=== PATIENT | male | born 1965 | race Hispanic/Latino ===

== ENCOUNTER 2018-12-31 17:41 | Emergency (ER) | payer OTHER ==
[2018-12-31] MEDS ORDERED: TETANUS/DIPHTHERIA TOXOID [ADULT] 0.5 ML VIAL IM ONE (17:57)
[2018-12-31] MEDS ORDERED: ACETAMINOPHEN EXTRA STRENGTH 500 MG TABLET ONE (18:26)
== END 2018-12-31 18:52 | disposition home or self-care (01) ==
LOC: EDH 17:41
DX: S01.01XA Laceration without foreign body of scalp, initial encounter (principal); W22.8XXA Striking against or struck by other objects, initial encounter; Y93.89 Activity, other specified; Y92.89 Other specified places as the place of occurrence of the external cause; Y99.8 Other external cause status
CPT/HCPCS: 12031; 90471; 90714

== ENCOUNTER 2019-01-14 17:34 | Emergency (ER) | payer OTHER | END 2019-01-14 18:11 | disposition home or self-care (01) | LOC: EDH 17:34 | DX: S01.81XD Laceration without foreign body of other part of head, subsequent encounter (principal); X58.XXXD Exposure to other specified factors, subsequent encounter | CPT/HCPCS: 99281 ==

== ENCOUNTER 2019-03-13 08:50 | Emergency (ER) | payer SELFPAY ==
[2019-03-13] MEDS ORDERED: METHYLPREDNISOLONE SOD SUCC 125MG/2ML VIAL ONE (09:14)
[2019-03-13] MEDS ORDERED: IPRATROPIUM/ALBUTEROL SULFATE 3 ML SOLUTION IH ONE (09:15)
[2019-03-13 09:17] LABS: BASOPHILS % (AUTO) 0.8 % (0.0-5.0); EOSINOPHILS % (AUTO) 20.3 % (0.0-8.0); HEMATOCRIT 42.1 % (42-54); LYMPHOCYTES % (AUTO) 17.7 % (21.0-51.0); MEAN CORPUSCULAR HEMOGLOBIN 27.9 pg (27.0-33.0); MEAN CORPUSCULAR HGB CONC 32.9 g/dL (32.0-36.0); MEAN CORPUSCULAR VOLUME 84.8 fL (79-99); MONOCYTES % (AUTO) 6.4 % (3.0-13.0); NEUTROPHILS % (AUTO) 54.8 % (40.0-77.0); NUCLEATED RED BLOOD CELLS 0.1 % (0.0-0.19); PLATELET COUNT (AUTO) 336 K/uL (130-400); RED BLOOD CELL COUNT(AUTO) 4.96 MIL/uL (4.50-6.20); WHITE BLOOD COUNT (AUTO) 12.6 K/uL (4.8-10.8)
[2019-03-13 09:27] LABS: CREATININE 0.8 mg/dL (0.5-1.5); POTASSIUM 3.9 mmol/L (3.5-5.1)
[2019-03-13 09:31] LABS: ALBUMIN 3.5 g/dL (3.5-5.0); BILIRUBIN,TOTAL 0.2 mg/dL (0.2-1.0); TOTAL PROTEIN, SERUM 8.4 g/dL (6.0-8.3)
[2019-03-13] MEDS ORDERED: CEFTRIAXONE SODIUM 1 GM ONE (09:32)
[2019-03-13] MEDS ORDERED: AZITHROMYCIN 250 MG TABLET PO ONE (09:33)
[2019-03-13] MEDS ORDERED: OSELTAMIVIR PHOSPHATE 75 MG CAP ONE (10:09)
== END 2019-03-13 10:41 | disposition home or self-care (01) ==
LOC: EDH 08:50
DX: J09.X2 Influenza due to identified novel influenza A virus with other respiratory manifestations (principal); J18.9 Pneumonia, unspecified organism; J45.41 Moderate persistent asthma with (acute) exacerbation; Z87.891 Personal history of nicotine dependence
CPT/HCPCS: 36415; 71045; 80053; 82550; 83605; 84484; 85025; 87040 ×2; 87804 ×2; 93005; 94640; 96374; 96375; 99285; J0696; J2930

== ENCOUNTER 2019-06-01 06:30 | Inpatient (IN) | payer SELFPAY ==
[~2019-06-01] VITALS: Ht 170.2 cm; Wt 69.8 kg
[2019-06-01] MEDS ORDERED: IPRATROPIUM/ALBUTEROL SULFATE 3 ML SOLUTION IH ONE ×2 (06:49→11:07)
[2019-06-01] MEDS ORDERED: PREDNISONE 20 MG TABLET ONE (07:07)
[2019-06-01 07:18] LABS: BASOPHILS % (AUTO) 0.8 % (0.0-5.0); EOSINOPHILS % (AUTO) 31.2 % (0.0-8.0); HEMATOCRIT 40.8 % (42-54); LYMPHOCYTES % (AUTO) 18.8 % (21.0-51.0); MEAN CORPUSCULAR HEMOGLOBIN 29.5 pg (27.0-33.0); MEAN CORPUSCULAR HGB CONC 33.8 g/dL (32.0-36.0); MEAN CORPUSCULAR VOLUME 87.3 fL (79-99); MONOCYTES % (AUTO) 5.2 % (3.0-13.0); PLATELET COUNT (AUTO) 400 K/uL (130-400); RED BLOOD CELL COUNT(AUTO) 4.67 MIL/uL (4.50-6.20); RED CELL DISTRIBUTION WIDTH 14.1 % (11.0-15.5); WHITE BLOOD COUNT (AUTO) 12.3 K/uL (4.8-10.8)
[2019-06-01 07:28] LABS: CREATININE 0.8 mg/dL (0.5-1.5); POTASSIUM 3.7 mmol/L (3.5-5.1)
[2019-06-01 07:32] LABS: PARTIAL THROMBOPLASTIN TIME 34.6 SEC (26.3-35.5); PROTHROMBIN TIME 10.5 SEC (9.6-11.6)
[2019-06-01 07:35] LABS: ALBUMIN 3.4 g/dL (3.5-5.0); BILIRUBIN,TOTAL 0.3 mg/dL (0.2-1.0); TOTAL PROTEIN, SERUM 8.4 g/dL (6.0-8.3)
[2019-06-01 07:40] LABS: B-TYPE NATRIURETIC PEPTIDE < 5 pg/mL (0-100)
[2019-06-01] MEDS ORDERED: CEFTRIAXONE SODIUM 1 GM ONE (07:40)
[2019-06-01] MEDS ORDERED: AZITHROMYCIN 500MG+NS 250ML 250 ML IV ONE (07:40)
[2019-06-01] MEDS ORDERED: IPRATROPIUM/ALBUTEROL SULFATE 3 ML SOLUTION IH SCH (10:30)
[2019-06-01] MEDS ORDERED: ACETAMINOPHEN 325 MG TAB PO PRN ×3 (11:00→14:45)
[2019-06-01] MEDS ORDERED: HYDROCODONE/ACETAMINOPHEN 5/325 MG TAB PO PRN (11:00)
[2019-06-01] MEDS ORDERED: ONDANSETRON HCL 4 MG/2 ML VIAL IV PRN ×2 (11:00→14:45)
[2019-06-01] MEDS ORDERED: LACTULOSE 20 GM/30 ML UDCUP PO PRN ×2 (11:00→14:45)
[2019-06-01] MEDS: IPRATROPIUM/ALBUTEROL SULFATE 3 ML SOLUTION IH SCH ×3 (11:14→23:22)
--- NOTE | 2019-06-01 11:17 | NUR ---
SMOKED ONLY 6 CIG/DAY Addendum: 06/01/19 at 1118 by LEÓN BLEVINS RT Amended: Links added.
[2019-06-01] MEDS ORDERED: GUAIFENESIN-DM 200/20 MG 10 ML ONE (11:52)
[2019-06-01] MEDS ORDERED: METHYLPREDNISOLONE SOD SUCC 40MG/ML 1ML ONE (11:53)
--- NOTE | 2019-06-01 12:45 | NUR ---
[facility] met with pt who lives with Rhina Mckeon [phone]. Pt states he is currently working thru [employer], is independent of all ADLS, no DME or in home care services. Pt states he sees MD in [place] when needs and buys his inhaler Seretide (Advair) in [place]. Pt denies dc needs, plan is home at ok. CM to follow and assist as needed Addendum: 06/01/19 at 1247 by GRISELDA HOWARD Amended: Links added.
[2019-06-01] MEDS ORDERED: IPRATROPIUM/ALBUTEROL SULFATE 3 ML SOLUTION IH PRN (14:45)
[2019-06-01] MEDS ORDERED: GUAIFENESIN-DM 200/20 MG 10 ML PO PRN (14:45)
--- NOTE | 2019-06-01 15:00 | NUR ---
INFECTION CONTROL-PT ON AIRBORNE ISOLATIONS IN ED DEPT. PPD ORDERED. EXPLAINED ISOLATION PRECAUTIONS AND PPD PLACEMENT PROCESS TO PATIENT. PATIENT IDENTIFIED USING 2 PATIENT IDENTIFIERS. PPD PLACED TO RIGHT ANTERIOR FOREARM. PT TOLERATED. NO BLEEDING OR HEMATOMA NOTED.NOTIFIED KEL JIMENEZGLEASON OPERATOR TO READ PPD ON 06/03/2019.
[2019-06-01 15:28] VITALS: BP 136/84
[2019-06-01] MEDS: DOXYCYCLINE 100MG+NS 250ML 250 ML IV SCH (17:57)
[2019-06-01 19:08] VITALS: BP 128/67
[2019-06-01] MEDS: FAMOTIDINE 20MG TAB 20 MG TAB PO SCH (20:42)
[2019-06-01] MEDS: BENZONATATE 100 MG CAPSULE PO SCH (20:42)
[2019-06-01] MEDS: OSELTAMIVIR PHOSPHATE 75 MG CAP PO SCH (20:42)
[2019-06-01] MEDS: GUAIFENESIN-DM 200/20 MG 10 ML PO SCH ×2 (21:00→23:05)
[2019-06-01] MEDS: METHYLPREDNISOLONE SOD SUCC 40MG/ML 1ML IVP SCH (21:00)
[2019-06-01] MEDS ORDERED: FAMOTIDINE 20MG TAB 20 MG TAB PO SCH (21:00)
[2019-06-01] MEDS ORDERED: SODIUM CHLORIDE 3% FOR INHALATION 4 ML/AMP VIAL.NEB IH ONE (23:36)
[2019-06-02] VITALS: BP 120/66
[2019-06-02] MEDS: METHYLPREDNISOLONE SOD SUCC 40MG/ML 1ML IVP SCH ×3 (02:44→18:37)
[2019-06-02 04:12] VITALS: BP 114/69
[2019-06-02] MEDS: DOXYCYCLINE 100MG+NS 250ML 250 ML IV SCH (04:57)
[2019-06-02] MEDS: GUAIFENESIN-DM 200/20 MG 10 ML PO SCH ×4 (04:57→23:00)
[2019-06-02 05:10] LABS: BASOPHILS % (AUTO) 0.5 % (0.0-5.0); EOSINOPHILS % (AUTO) 0.8 % (0.0-8.0); HEMATOCRIT 38.1 % (42-54); LYMPHOCYTES % (AUTO) 11.7 % (21.0-51.0); MEAN CORPUSCULAR HEMOGLOBIN 29.6 pg (27.0-33.0); MEAN CORPUSCULAR HGB CONC 33.2 g/dL (32.0-36.0); MEAN CORPUSCULAR VOLUME 89.1 fL (79-99); MONOCYTES % (AUTO) 3.3 % (3.0-13.0); NEUTROPHILS % (AUTO) 83.7 % (40.0-77.0); NUCLEATED RED BLOOD CELLS 0.1 % (0.0-0.19); PLATELET COUNT (AUTO) 355 K/uL (130-400); RED BLOOD CELL COUNT(AUTO) 4.28 MIL/uL (4.50-6.20); RED CELL DISTRIBUTION WIDTH 14.1 % (11.0-15.5); WHITE BLOOD COUNT (AUTO) 13.5 K/uL (4.8-10.8)
[2019-06-02 05:42] LABS: ALBUMIN 3.1 g/dL (3.5-5.0); BILIRUBIN,TOTAL 0.3 mg/dL (0.2-1.0); CREATININE 0.8 mg/dL (0.5-1.5); POTASSIUM 4.3 mmol/L (3.5-5.1)
[2019-06-02] MEDS ORDERED: SODIUM CHLORIDE 3% FOR INHALATION 4 ML/AMP VIAL.NEB IH ONE (07:30)
[2019-06-02] MEDS: IPRATROPIUM/ALBUTEROL SULFATE 3 ML SOLUTION IH SCH ×4 (07:37→23:12)
[2019-06-02 08:00] VITALS: BP 132/76
[2019-06-02] MEDS ORDERED: ENOXAPARIN SODIUM 30 MG/0.3 ML SQ SCH (09:00)
[2019-06-02] MEDS ORDERED: AZITHROMYCIN 500MG+NS 250ML 250 ML IV SCH (09:00)
[2019-06-02] MEDS: ENOXAPARIN SODIUM 40 MG/0.4 ML SYRINGE SQ SCH (09:00)
[2019-06-02] MEDS: FAMOTIDINE 20MG TAB 20 MG TAB PO SCH ×2 (10:02→20:53)
[2019-06-02] MEDS: BENZONATATE 100 MG CAPSULE PO SCH ×3 (10:03→20:53)
[2019-06-02] MEDS: OSELTAMIVIR PHOSPHATE 75 MG CAP PO SCH ×2 (10:03→20:52)
[2019-06-02] MEDS: CEFTRIAXONE SODIUM 1 GM IV SCH (10:04)
[2019-06-02] MEDS ORDERED: CEFTRIAXONE SODIUM 1 GM IV SCH (11:00)
[2019-06-02 12:00] VITALS: BP 119/76
[2019-06-02] MEDS ORDERED: DOXYCYCLINE 100MG+NS 250ML 250 ML IV SCH (14:00)
[2019-06-02 16:00] VITALS: BP 125/78
[2019-06-02 20:00] VITALS: BP 135/82
[2019-06-02] MEDS: DOXYCYCLINE HYCLATE 100 MG TABLET PO SCH (20:52)
[2019-06-03] VITALS (7 sets, daily range): BP systolic 122–176; BP diastolic 78–92
[2019-06-03] MEDS: METHYLPREDNISOLONE SOD SUCC 40MG/ML 1ML IVP SCH ×3 (02:11→18:20)
[2019-06-03] MEDS: GUAIFENESIN-DM 200/20 MG 10 ML PO SCH ×3 (04:09→18:20)
[2019-06-03 05:24] LABS: BASOPHILS % (AUTO) 0.2 % (0.0-5.0); HEMATOCRIT 40.9 % (42-54); LYMPHOCYTES % (AUTO) 6.5 % (21.0-51.0); MEAN CORPUSCULAR HEMOGLOBIN 29.5 pg (27.0-33.0); MEAN CORPUSCULAR HGB CONC 33.3 g/dL (32.0-36.0); MEAN CORPUSCULAR VOLUME 88.5 fL (79-99); MONOCYTES % (AUTO) 1.9 % (3.0-13.0); NEUTROPHILS % (AUTO) 91.4 % (40.0-77.0); PLATELET COUNT (AUTO) 374 K/uL (130-400); RED BLOOD CELL COUNT(AUTO) 4.63 MIL/uL (4.50-6.20); RED CELL DISTRIBUTION WIDTH 14.2 % (11.0-15.5)
[2019-06-03 05:47] LABS: CREATININE 0.8 mg/dL (0.5-1.5); MAGNESIUM 1.9 mg/dL (1.80-2.40); PHOSPHORUS 3.3 mg/dL (2.5-4.9); POTASSIUM 4.4 mmol/L (3.5-5.1)
[2019-06-03] MEDS: IPRATROPIUM/ALBUTEROL SULFATE 3 ML SOLUTION IH SCH ×4 (06:25→23:46)
[2019-06-03] MEDS: ENOXAPARIN SODIUM 40 MG/0.4 ML SYRINGE SQ SCH (07:38)
[2019-06-03] MEDS: FAMOTIDINE 20MG TAB 20 MG TAB PO SCH ×2 (09:09→21:04)
[2019-06-03] MEDS: DOXYCYCLINE HYCLATE 100 MG TABLET PO SCH (09:09)
[2019-06-03] MEDS: CEFTRIAXONE SODIUM 1 GM IV SCH (09:09)
[2019-06-03] MEDS: OSELTAMIVIR PHOSPHATE 75 MG CAP PO SCH (09:09)
[2019-06-03] MEDS: BENZONATATE 100 MG CAPSULE PO SCH ×3 (09:10→21:04)
--- NOTE | 2019-06-03 18:00 | NUR ---
PPD READING READ PATIENT'S PPD TESTING ON THE RIGHT FOREARM, 0MM NO INDURATION NOTED.
--- NOTE | 2019-06-03 18:07 | NUR ---
[facility] UNTIL WE HAVE 3 NEGATIVE ACID FAST RESULTS . HOUSE SUPR NOTIFIED
[2019-06-04] MEDS: GUAIFENESIN-DM 200/20 MG 10 ML PO SCH ×4 (00:22→18:09)
[2019-06-04] MEDS: METHYLPREDNISOLONE SOD SUCC 40MG/ML 1ML IVP SCH ×3 (02:47→18:09)
[2019-06-04 03:35] VITALS: BP 136/89
[2019-06-04 05:39] LABS: MEAN CORPUSCULAR HEMOGLOBIN 29.5 pg (27.0-33.0); MEAN CORPUSCULAR HGB CONC 33.3 g/dL (32.0-36.0); MEAN CORPUSCULAR VOLUME 88.4 fL (79-99); PLATELET COUNT (AUTO) 391 K/uL (130-400); RED BLOOD CELL COUNT(AUTO) 4.75 MIL/uL (4.50-6.20); RED CELL DISTRIBUTION WIDTH 14.3 % (11.0-15.5); WHITE BLOOD COUNT (AUTO) 14.8 K/uL (4.8-10.8)
[2019-06-04 05:56] LABS: LYMPHOCYTES % (MANUAL) 5 % (22-44); MAN.DIFF COMMENT-IMPRESSION MANUAL DIFFERENTIAL; MONOCYTES % (MANUAL) 4 % (2-9); SEGMENTED NEUTROPHILS % 91 % (40-70)
[2019-06-04 05:57] LABS: PLATELET MORPHOLOGY COMMENT ADEQUATE
[2019-06-04 06:07] LABS: CREATININE 0.8 mg/dL (0.5-1.5); POTASSIUM 4.3 mmol/L (3.5-5.1)
[2019-06-04] MEDS: IPRATROPIUM/ALBUTEROL SULFATE 3 ML SOLUTION IH SCH ×4 (06:30→23:28)
[2019-06-04 08:00] VITALS: BP 138/84
[2019-06-04] MEDS: ENOXAPARIN SODIUM 40 MG/0.4 ML SYRINGE SQ SCH (09:00)
[2019-06-04] MEDS: FAMOTIDINE 20MG TAB 20 MG TAB PO SCH ×2 (09:17→20:36)
[2019-06-04] MEDS: BENZONATATE 100 MG CAPSULE PO SCH ×3 (09:17→20:39)
[2019-06-04 12:00] VITALS: BP 129/75
[2019-06-04 16:00] VITALS: BP 130/85
[2019-06-04 19:35] VITALS: BP 135/76
[2019-06-04] MEDS: SULFAMETHOX-TMP DS 800/160 TAB PO SCH (20:36)
[2019-06-04 23:00] VITALS: BP 130/78
[2019-06-05] MEDS: GUAIFENESIN-DM 200/20 MG 10 ML PO SCH ×5 (00:14→23:39)
[2019-06-05] MEDS: METHYLPREDNISOLONE SOD SUCC 40MG/ML 1ML IVP SCH ×3 (02:59→17:56)
[2019-06-05 03:35] VITALS: BP 132/83
--- NOTE | 2019-06-05 04:00 | NUR ---
SLEPT Pt slept fairly well.Voiced no omplaints of pain or dicomfort.
[2019-06-05 05:11] LABS: HEMATOCRIT 43.6 % (42-54); MEAN CORPUSCULAR HEMOGLOBIN 29.2 pg (27.0-33.0); MEAN CORPUSCULAR HGB CONC 32.4 g/dL (32.0-36.0); PLATELET COUNT (AUTO) 402 K/uL (130-400); RED BLOOD CELL COUNT(AUTO) 4.85 MIL/uL (4.50-6.20); RED CELL DISTRIBUTION WIDTH 14.2 % (11.0-15.5); WHITE BLOOD COUNT (AUTO) 15.7 K/uL (4.8-10.8)
[2019-06-05 05:32] LABS: BAND NEUTROPHILS % (MANUAL) 1 % (0-2); LYMPHOCYTES % (MANUAL) 12 % (22-44); MAN.DIFF COMMENT-IMPRESSION MANUAL DIFFERENTIAL; METAMYELOCYTES % 1 % (0-0); MONOCYTES % (MANUAL) 8 % (2-9); SEGMENTED NEUTROPHILS % 78 % (40-70)
[2019-06-05 05:33] LABS: PLATELET MORPHOLOGY COMMENT SLIGHT INCREASED
[2019-06-05 05:39] LABS: CREATININE 0.9 mg/dL (0.5-1.5); POTASSIUM 4.9 mmol/L (3.5-5.1)
[2019-06-05] MEDS: IPRATROPIUM/ALBUTEROL SULFATE 3 ML SOLUTION IH SCH ×4 (07:20→23:19)
[2019-06-05 08:00] VITALS: BP 126/86
[2019-06-05] MEDS: ENOXAPARIN SODIUM 40 MG/0.4 ML SYRINGE SQ SCH (09:00)
[2019-06-05] MEDS: FAMOTIDINE 20MG TAB 20 MG TAB PO SCH ×2 (09:49→20:36)
[2019-06-05] MEDS: SULFAMETHOX-TMP DS 800/160 TAB PO SCH ×2 (09:49→20:36)
[2019-06-05] MEDS: BENZONATATE 100 MG CAPSULE PO SCH ×3 (09:49→20:36)
[2019-06-05 12:00] VITALS: BP 125/90
[2019-06-05] MEDS: MONTELUKAST SODIUM 10 MG TAB PO SCH (17:53)
[2019-06-05] MEDS: CETIRIZINE HCL 5 MG TABLET PO SCH (17:53)
[2019-06-05 18:03] VITALS: BP 130/74
[2019-06-05 19:20] VITALS: BP 130/89
[2019-06-06 00:30] VITALS: BP 133/75
[2019-06-06] MEDS: METHYLPREDNISOLONE SOD SUCC 40MG/ML 1ML IVP SCH ×3 (02:44→09:47)
[2019-06-06 04:00] VITALS: BP 122/75
[2019-06-06] MEDS: GUAIFENESIN-DM 200/20 MG 10 ML PO SCH ×2 (05:37→12:52)
[2019-06-06] MEDS: IPRATROPIUM/ALBUTEROL SULFATE 3 ML SOLUTION IH SCH ×2 (06:21→11:31)
--- NOTE | 2019-06-06 06:36 | NUR ---
flushed IV saline lock with normal saline. patent. no issues.
[2019-06-06 08:00] VITALS: BP 125/80
[2019-06-06] MEDS: ENOXAPARIN SODIUM 40 MG/0.4 ML SYRINGE SQ SCH (08:36)
[2019-06-06] MEDS: SULFAMETHOX-TMP DS 800/160 TAB PO SCH (08:36)
[2019-06-06] MEDS: CETIRIZINE HCL 5 MG TABLET PO SCH (08:36)
[2019-06-06] MEDS: BENZONATATE 100 MG CAPSULE PO SCH ×2 (08:36→12:52)
[2019-06-06] MEDS: MONTELUKAST SODIUM 10 MG TAB PO SCH (08:37)
[2019-06-06] MEDS: FAMOTIDINE 20MG TAB 20 MG TAB PO SCH (08:37)
[2019-06-06 12:00] VITALS: BP 125/79
[2019-06-06] MEDS ORDERED: PRED20TA3 PO (12:37)
[2019-06-06] MEDS ORDERED: SULF1TAB3 PO (12:37)
[2019-06-06] MEDS ORDERED: MONT10TA21 PO (12:37)
[2019-06-06] MEDS ORDERED: Cetirizine Hcl 5 Mg Tablet PO (12:37)
[2019-06-06] MEDS ORDERED: IPRA3AMP24 IH (12:37)
[2019-06-06] MEDS ORDERED: BENZ-51 PO (12:37)
--- NOTE | 2019-06-06 16:20 | NUR ---
PATIENT DISCHARGE PATIENT DISCHARGED, IV DISCONTINUED, CATHLON INTACT, BLEEDING CONTROLLED, PATIENT TOLERATED WITHOUT INCIDENT.
== END 2019-06-06 17:10 | disposition home or self-care (01) | DRG 193 ==
LOC: EDH 06:30 → EDHIP 06:31 → 3CH 15:19
PROVIDERS: ADMIT Family Medicine; ATTEND Family Medicine
DX: J18.9 Pneumonia, unspecified organism (principal); J96.01 Acute respiratory failure with hypoxia; J45.901 Unspecified asthma with (acute) exacerbation; R59.0 Localized enlarged lymph nodes; B95.62 Methicillin resistant Staphylococcus aureus infection as the cause of diseases classified elsewhere; B97.89 Other viral agents as the cause of diseases classified elsewhere; Z87.891 Personal history of nicotine dependence
CPT/HCPCS: 36415; 71045; 71046; 71250; 80048; 80053; 82550; 83605; 83735; 83880; 84100; 84145; 84484; 85025; 85610; 85730; 87040; 87071; 87077; 87116; 87186; 87205; 87206; 87486; 87581; 87633; 87798; 87804; 93005; 94640; 94664; G0378; J0456; J0696; J1650; J2920; J3490

== ENCOUNTER 2019-12-10 07:20 | Inpatient (IN) | payer OTHER ==
[~2019-12-10] VITALS: Ht 170.2 cm; Wt 70.6 kg
[~2019-12-10 07:20] MED LIST: BUDE0.5A3 IH; Cetirizine Hcl 5 Mg Tablet PO; FAMO20TA8 PO; HYDR25TA PO; IPRA3AMP24 IH; LEVO500T2 PO; MONT10TA21 PO; PRED20B PO; [UNRECOGNIZED DRUG - CODE] MC
[2019-12-10] MEDS ORDERED: METHYLPREDNISOLONE SOD SUCC 125MG/2ML VIAL ONE (08:06)
[2019-12-10] MEDS ORDERED: SODIUM CHLORIDE 0.9% 1000ML 1,000 ML IV ONE (08:07)
[2019-12-10] MEDS ORDERED: ALBUTEROL INHALER 90MCG/INH IH ONE (08:08)
[2019-12-10 08:11] LABS: BASOPHILS % (AUTO) 0.3 % (0.0-5.0); HEMATOCRIT 36.7 % (42-54); LYMPHOCYTES % (AUTO) 7.5 % (21.0-51.0); MEAN CORPUSCULAR HEMOGLOBIN 29.3 pg (27.0-33.0); MEAN CORPUSCULAR HGB CONC 33.2 g/dL (32.0-36.0); MEAN CORPUSCULAR VOLUME 88.2 fL (79-99); MONOCYTES % (AUTO) 6.2 % (3.0-13.0); NEUTROPHILS % (AUTO) 71.3 % (40.0-77.0); PLATELET COUNT (AUTO) 589 K/uL (130-400); RED BLOOD CELL COUNT(AUTO) 4.16 MIL/uL (4.50-6.20); RED CELL DISTRIBUTION WIDTH 12.5 % (11.0-15.5); WHITE BLOOD COUNT (AUTO) 21.8 K/uL (4.8-10.8)
[2019-12-10 08:28] LABS: INR 1.03 (0.85-1.15); PARTIAL THROMBOPLASTIN TIME 38.3 SEC (26.3-35.5); PROTHROMBIN TIME 11.1 SEC (9.6-11.6)
[2019-12-10] MEDS ORDERED: CEFTRIAXONE SODIUM 2 GM VIAL ONE (08:32)
[2019-12-10] MEDS ORDERED: SODIUM CHLORIDE 0.9% 100 ML IV ONE (08:32)
[2019-12-10 09:30] LABS: CARBON DIOXIDE 24 mmol/L (21-32); CHLORIDE 98 mmol/L (101-111); CREATININE 0.7 mg/dL (0.5-1.5); GLOMERULAR FILTR. RATE CALC 124 mL/min (>60); GLUCOSE,RANDOM 123 mg/dL (70-105); POTASSIUM 3.7 mmol/L (3.5-5.1); SODIUM SERUM 134 mmol/L (136-145); UREA NITROGEN, BLOOD 10 mg/dL (7-18)
[2019-12-10 09:43] LABS: ALANINE AMINOTRANSFERASE 44 U/L (12-78); ALBUMIN 2.3 g/dL (3.5-5.0); ASPARTATE AMINOTRANSFERASE 30 U/L (10-37); CREATINE KINASE, TOTAL 37 U/L (21-232); MYOGLOBIN 32 ng/mL (10-92); TOTAL PROTEIN, SERUM 8.3 g/dL (6.0-8.3); TROPONIN I < 0.04 ng/mL (0.00-0.06)
[2019-12-10 10:01] LABS: BILIRUBIN,TOTAL 0.4 mg/dL (0.2-1.0)
[2019-12-10 10:29] LABS: APPEARANCE,URINE Clear (CLEAR); BILIRUBIN,URINE Negative (NEGATIVE); COLOR,URINE Yellow (YELLOW); GLUCOSE, URINE (UA) Negative (NEGATIVE); KETONES,URINE Trace mg/dL (NEGATIVE); LEUKOCYTE ESTERASE ,URINE Negative (NEGATIVE); NITRATE,URINE Negative (NEGATIVE); OCCULT BLOOD,URINE Negative (NEGATIVE); PH,URINE 5.5 (5.0-8.0); PROTEIN,URINE Negative (NEGATIVE)
[2019-12-10] MEDS ORDERED: ONDANSETRON HCL 4 MG/2 ML VIAL IV PRN (11:30)
[2019-12-10] MEDS ORDERED: CEFEPIME HCL 1 GM VIAL IVP SCH ×2 (11:30→19:30)
[2019-12-10] MEDS ORDERED: HYDRALAZINE HCL 20 MG/ML VIAL IV PRN (11:30)
[2019-12-10] MEDS ORDERED: ACETAMINOPHEN 325 MG TAB PO PRN ×2 (11:30)
[2019-12-10] MEDS ORDERED: AZITHROMYCIN 500MG+NS 250ML 250 ML IV SCH (11:30)
[2019-12-10] MEDS ORDERED: LEVOFLOXACIN 750 MG/D5W 150 ML 150 ML ONE (12:03)
[2019-12-10] MEDS ORDERED: CEFEPIME HCL 1 GM VIAL ONE (12:04)
[2019-12-10 13:15] VITALS: BP 117/81
--- NOTE | 2019-12-10 13:30 | NUR ---
Patient arrived to floor. MD Oswald notified and stated he will come to see patient. Patient states he is feeling better and is no distress. will continue to monitor
[2019-12-10] MEDS ORDERED: ALBUTEROL INHALER IH SCH (14:00)
[2019-12-10] MEDS: LEVOFLOXACIN 500 MG/D5W 100 ML 100 ML IV SCH (14:45)
[2019-12-10 16:00] VITALS: BP 117/75
[2019-12-10] MEDS: METHYLPREDNISOLONE SOD SUCC 125MG/2ML VIAL IV SCH ×2 (16:36→20:46)
[2019-12-10] MEDS: ALBUTEROL INHALER 90MCG/INH IH SCH ×2 (19:16→22:28)
[2019-12-10 19:39] VITALS: BP 123/79
[2019-12-10] MEDS: RANITIDINE HCL 15 MG/1 ML PO SCH (20:46)
[2019-12-10] MEDS: CEFEPIME HCL 2 GM VIAL IVP SCH (20:49)
[2019-12-10 23:54] VITALS: BP 125/72
[2019-12-11] MEDS ORDERED: VANCOMYCIN PROTOCOL PER PHARMACY IV SCH (00:45)
[2019-12-11] MEDS: VANCOMYCIN 1GM+NS 250ML IV SCH ×2 (02:11→03:33)
[2019-12-11] MEDS: ALBUTEROL INHALER 90MCG/INH IH SCH ×4 (02:51→22:29)
[2019-12-11 03:36] VITALS: BP 126/78
[2019-12-11 04:12] LABS: BASOPHILS % (AUTO) 0.1 % (0.0-5.0); EOSINOPHILS % (AUTO) 0.2 % (0.0-8.0); HEMATOCRIT 33.3 % (42-54); MEAN CORPUSCULAR HEMOGLOBIN 29.2 pg (27.0-33.0); MEAN CORPUSCULAR HGB CONC 32.4 g/dL (32.0-36.0); MONOCYTES % (AUTO) 2.9 % (3.0-13.0); NEUTROPHILS % (AUTO) 86.8 % (40.0-77.0); PLATELET COUNT (AUTO) 538 K/uL (130-400); RED CELL DISTRIBUTION WIDTH 12.6 % (11.0-15.5); WHITE BLOOD COUNT (AUTO) 15.7 K/uL (4.8-10.8)
[2019-12-11 04:30] LABS: BILIRUBIN,TOTAL 0.2 mg/dL (0.2-1.0); CREATININE 0.9 mg/dL (0.5-1.5); POTASSIUM 4.2 mmol/L (3.5-5.1); TOTAL PROTEIN, SERUM 7.8 g/dL (6.0-8.3)
[2019-12-11] MEDS: CEFEPIME HCL 2 GM VIAL IVP SCH ×3 (04:35→20:40)
[2019-12-11] MEDS: METHYLPREDNISOLONE SOD SUCC 125MG/2ML VIAL IV SCH ×2 (05:12→13:49)
--- NOTE | 2019-12-11 08:00 | NUR ---
ASSESSMENT ENCOUNTERED PT A&OX3, CALM COOPERATIVE AND DOES NOT APPEAR TO BE IN ANY DISTRESS NOR ANY NEURO DEFICITS PRESENT. PT DENIES PAIN, SOB, NAUSEA. PT IS AMBULATORY, GAIT SLOW BUT STEADY WITH STAND BY ASSIST. CALL LIGHT WITHIN REACH.
[2019-12-11 08:32] VITALS: BP 135/82
[2019-12-11] MEDS ORDERED: LEVOFLOXACIN 750 MG/D5W 150 ML 150 ML IV SCH (09:00)
[2019-12-11] MEDS ORDERED: HYDRALAZINE HCL 20 MG/ML VIAL IV PRN (10:30)
[2019-12-11] MEDS ORDERED: LACTULOSE 20 GM/30 ML UDCUP PO PRN (10:30)
[2019-12-11] MEDS ORDERED: TEMAZEPAM 7.5 MG CAPSULE PO PRN (10:30)
[2019-12-11 12:28] VITALS: BP 110/69
[2019-12-11] MEDS: LEVOFLOXACIN 500 MG/D5W 100 ML 100 ML IV SCH (13:48)
[2019-12-11] MEDS: RANITIDINE HCL 15 MG/1 ML PO SCH ×2 (13:48→20:40)
[2019-12-11] MEDS: VANCOMYCIN 1GM+NS 250ML 250 ML IV SCH (13:48)
--- NOTE | 2019-12-11 14:43 | NUR ---
INITIAL SW spoke with patient. He states he lives with spouse, Rhina Mckeon, [phone] and daughter, Mony Enciso, [phone]. No home services. DME: nebulizer. Patient was employed [employer] but has recently been laid off due to COVID Pandemic. He states he is able to complete ADL's independently and drives. PCP is Dr. Tobias Carbajal. Pharmacy is [facility] located in [place]. DCP is home. Patient has no insurance or benefits. He a [place] citizen and has worked in the [place]. SW educated patient on [employer] $4 medication program and [facility] $5 medication program. Patient is being assisted by [employer] for financial matters. Addendum: 12/11/19 at 1446 by RAFAL DIALLO SS Amended: Links added.
[2019-12-11 16:11] VITALS: BP 123/76
[2019-12-11 19:00] VITALS: BP 128/81
[2019-12-11] MEDS: FAMOTIDINE/PF 20 MG/2 ML VIAL IV SCH (19:00)
[2019-12-11 23:46] VITALS: BP 120/83
[2019-12-12] MEDS: VANCOMYCIN 1GM+NS 250ML 250 ML IV SCH ×3 (02:30→21:50)
[2019-12-12] MEDS: ALBUTEROL INHALER 90MCG/INH IH SCH ×4 (02:38→21:35)
[2019-12-12 03:05] VITALS: BP 152/82
[2019-12-12] MEDS: CEFEPIME HCL 2 GM VIAL IVP SCH ×3 (05:04→21:50)
[2019-12-12 05:12] LABS: BASOPHILS % (AUTO) 0.1 % (0.0-5.0); EOSINOPHILS % (AUTO) 0.1 % (0.0-8.0); HEMATOCRIT 34.6 % (42-54); LYMPHOCYTES % (AUTO) 9.1 % (21.0-51.0); MEAN CORPUSCULAR HEMOGLOBIN 29.2 pg (27.0-33.0); MEAN CORPUSCULAR HGB CONC 32.4 g/dL (32.0-36.0); MEAN CORPUSCULAR VOLUME 90.3 fL (79-99); MONOCYTES % (AUTO) 5.6 % (3.0-13.0); PLATELET COUNT (AUTO) 614 K/uL (130-400); RED BLOOD CELL COUNT(AUTO) 3.83 MIL/uL (4.50-6.20); RED CELL DISTRIBUTION WIDTH 12.5 % (11.0-15.5); WHITE BLOOD COUNT (AUTO) 23.2 K/uL (4.8-10.8)
[2019-12-12 05:31] LABS: CARBON DIOXIDE 28 mmol/L (21-32); CHLORIDE 102 mmol/L (101-111); CREATININE 0.8 mg/dL (0.5-1.5); GLOMERULAR FILTR. RATE CALC 106 mL/min (>60); GLUCOSE,RANDOM 147 mg/dL (70-105); PHOSPHORUS 2.9 mg/dL (2.5-4.9); POTASSIUM 4.1 mmol/L (3.5-5.1); SODIUM SERUM 136 mmol/L (136-145); UREA NITROGEN, BLOOD 17 mg/dL (7-18)
[2019-12-12] MEDS: RANITIDINE HCL 15 MG/1 ML PO SCH ×2 (10:47→21:50)
[2019-12-12] MEDS: ENOXAPARIN SODIUM 40 MG/0.4 ML SYRINGE SQ SCH (10:53)
[2019-12-12] MEDS: PREDNISONE 20 MG TABLET PO SCH (10:53)
[2019-12-12] MEDS: FAMOTIDINE/PF 20 MG/2 ML VIAL IV SCH (10:53)
[2019-12-12] MEDS: DOCUSATE SODIUM 100 MG CAP PO SCH (10:53)
[2019-12-12 12:33] VITALS: BP 120/67
[2019-12-12] MEDS: LEVOFLOXACIN 500 MG/D5W 100 ML 100 ML IV SCH (15:03)
[2019-12-12 16:37] VITALS: BP 129/85
[2019-12-12 20:27] VITALS: BP 134/83
[2019-12-12 23:40] VITALS: BP 128/83
[2019-12-13] MEDS: ALBUTEROL INHALER 90MCG/INH IH SCH ×6 (01:14→21:38)
[2019-12-13 03:15] VITALS: BP 125/82
[2019-12-13 05:23] LABS: BASOPHILS % (AUTO) 0.3 % (0.0-5.0); EOSINOPHILS % (AUTO) 4.9 % (0.0-8.0); HEMATOCRIT 37.1 % (42-54); LYMPHOCYTES % (AUTO) 17.3 % (21.0-51.0); MEAN CORPUSCULAR HEMOGLOBIN 28.6 pg (27.0-33.0); MEAN CORPUSCULAR HGB CONC 31.8 g/dL (32.0-36.0); MEAN CORPUSCULAR VOLUME 89.8 fL (79-99); MONOCYTES % (AUTO) 8.4 % (3.0-13.0); NEUTROPHILS % (AUTO) 68.1 % (40.0-77.0); PLATELET COUNT (AUTO) 644 K/uL (130-400); RED BLOOD CELL COUNT(AUTO) 4.13 MIL/uL (4.50-6.20); RED CELL DISTRIBUTION WIDTH 12.5 % (11.0-15.5); WHITE BLOOD COUNT (AUTO) 15.9 K/uL (4.8-10.8)
[2019-12-13] MEDS: CEFEPIME HCL 2 GM VIAL IVP SCH (05:42)
[2019-12-13 05:54] LABS: CREATININE 0.8 mg/dL (0.5-1.5); POTASSIUM 3.7 mmol/L (3.5-5.1)
[2019-12-13] MEDS: VANCOMYCIN 1GM+NS 250ML 250 ML IV SCH (06:51)
[2019-12-13 08:05] VITALS: BP 122/79
[2019-12-13] MEDS: RANITIDINE HCL 15 MG/1 ML PO SCH ×2 (08:07→20:53)
[2019-12-13] MEDS: PREDNISONE 20 MG TABLET PO SCH (08:07)
[2019-12-13] MEDS: DOCUSATE SODIUM 100 MG CAP PO SCH (08:07)
[2019-12-13] MEDS: ENOXAPARIN SODIUM 40 MG/0.4 ML SYRINGE SQ SCH (08:08)
[2019-12-13] MEDS: NAFCILLIN 2GM+ NS 100ML 100 ML IV SCH ×4 (12:00→22:30)
--- NOTE | 2019-12-13 13:45 | NUR ---
RECEIVED REPORT FROM SEUN ALBARRAN PT [id number]. DENIES ANY PAIN/DISCOMFORT. RESP EVEN, UNLABORED. WILL CONTINUE TO MONITOR.
[2019-12-13 14:29] VITALS: BP 109/74
[2019-12-13] MEDS: LEVOFLOXACIN 500 MG/D5W 100 ML 100 ML IV SCH (15:17)
[2019-12-13 16:56] VITALS: BP 116/84
[2019-12-13 20:00] VITALS: BP 135/92
[2019-12-14] VITALS: BP 96/63
[2019-12-14] MEDS: ALBUTEROL INHALER 90MCG/INH IH SCH ×5 (01:08→18:36)
[2019-12-14] MEDS: NAFCILLIN 2GM+ NS 100ML 100 ML IV SCH ×5 (02:30→15:39)
[2019-12-14 04:11] VITALS: BP 94/58
[2019-12-14 05:29] LABS: BASOPHILS % (AUTO) 0.3 % (0.0-5.0); EOSINOPHILS % (AUTO) 5.9 % (0.0-8.0); MEAN CORPUSCULAR HEMOGLOBIN 29.5 pg (27.0-33.0); MEAN CORPUSCULAR HGB CONC 33.1 g/dL (32.0-36.0); MEAN CORPUSCULAR VOLUME 89.3 fL (79-99); MONOCYTES % (AUTO) 2.2 % (3.0-13.0); NEUTROPHILS % (AUTO) 86.3 % (40.0-77.0); PLATELET COUNT (AUTO) 550 K/uL (130-400); RED BLOOD CELL COUNT(AUTO) 4.03 MIL/uL (4.50-6.20); RED CELL DISTRIBUTION WIDTH 12.4 % (11.0-15.5); WHITE BLOOD COUNT (AUTO) 21.5 K/uL (4.8-10.8)
[2019-12-14 05:41] LABS: POTASSIUM 3.4 mmol/L (3.5-5.1)
[2019-12-14 07:30] VITALS: BP 95/70
--- NOTE | 2019-12-14 07:43 | NUR ---
PATIENT UPDATE Pt started on the new antibiotic Nafcillin 2 gms ivpb, 1st dose received at 1830. Stated that he started feeling lightheaded detention while the med is infusing. Stated that he started having chills, afebrile. Blood pressure around mn in the high 90's systolic, started feeling the same lightheadedness almost 1 hr after the 0200 med and this time, refused to continue with the medication prescribed .No coughing spells, no shortness of breath,afebrile.Will let the MDknow about the pt's reaction to the new med, the drop in the blood pressure and the chills in between meds.
[2019-12-14] MEDS: DOCUSATE SODIUM 100 MG CAP PO SCH (09:05)
[2019-12-14] MEDS: RANITIDINE HCL 15 MG/1 ML PO SCH (09:05)
[2019-12-14] MEDS: ENOXAPARIN SODIUM 40 MG/0.4 ML SYRINGE SQ SCH (09:05)
[2019-12-14 11:00] VITALS: BP 104/72
[2019-12-14] MEDS ORDERED: LEVO500T2 PO (13:20)
[2019-12-14] MEDS ORDERED: CEFU500T67 PO (13:20)
[2019-12-14] MEDS: LEVOFLOXACIN 500 MG/D5W 100 ML 100 ML IV SCH (14:52)
[2019-12-14 16:00] VITALS: BP 106/68
--- NOTE | 2019-12-14 19:18 | NUR ---
PATIENT DISCHARGED PATIENT DISCHARGED, IV DISCONTINUED, CATHLON INTACT, BLEEDING CONTROLLED, PATIENT TOLERATED WITHOUT INCIDENT.
== END 2019-12-14 19:10 | disposition home or self-care (01) | DRG 177 ==
LOC: EDH 07:20 → EDHIP 07:21 → 2DH 13:17 → 4CH 12-13 10:57
PROVIDERS: ADMIT Internal Medicine; ATTEND Internal Medicine
DX: J15.1 Pneumonia due to Pseudomonas (principal); J96.01 Acute respiratory failure with hypoxia; J45.901 Unspecified asthma with (acute) exacerbation; N39.0 Urinary tract infection, site not specified; J47.0 Bronchiectasis with acute lower respiratory infection; J15.211 Pneumonia due to Methicillin susceptible Staphylococcus aureus; F41.9 Anxiety disorder, unspecified; I10 Essential (primary) hypertension; R59.0 Localized enlarged lymph nodes; Z82.5 Family history of asthma and other chronic lower respiratory diseases; Z83.3 Family history of diabetes mellitus; Z87.01 Personal history of pneumonia (recurrent); Z82.49 Family history of ischemic heart disease and other diseases of the circulatory system
CPT/HCPCS: 36415; 71045; 71250; 80048; 80053; 80202; 81003; 82550; 82728; 83605; 83735; 83874; 84100; 84145; 84484; 85025; 85610; 85730; 86606; 86612; 86635; 86698; 86738; 87040; 87071; 87077; 87088; 87186; 87205; 87449; 87633; 87635; 93005; 99291; G0378; J0456; J0692; J0696; J1650; J1956; J2405; J2930; J3370; J3490; J7030

== ENCOUNTER 2025-03-12 10:38 | Emergency (ER) | payer BC ==
[~2025-03-12] VITALS: Ht 170.2 cm; Wt 74.8 kg
[~2025-03-12 10:38] MED LIST changes: +AZIT500T4 PO; -BUDE0.5A3 IH; -Cetirizine Hcl 5 Mg Tablet PO; -FAMO20TA8 PO; +FLUT1BLS3 IH; -HYDR25TA PO; -LEVO500T2 PO; +METH4TAB3 PO; +MONT-39 PO; -MONT10TA21 PO; -PRED20B PO; -[UNRECOGNIZED DRUG - CODE] MC
--- NOTE | 2025-03-12 10:54 | EKG ---
[facility] Test Date: 2025-03-12 Test Time: 10:45:37 Pat Name: ERIC LEDESMA Department: ED Room: Gender: M [employer]: [id number] : 1965 Requested By: KEVYN EVANS Order Number: [id number] Reading MD: Zachery Amaya Measurements Intervals [place]ick Rate: 87 P: 53 LA: 157 QRS: 25 QRSD: 151 T: 135 QT: 419 QTc: 504 Interpretive Statements Sinus rhythm Left bundle branch block ST elevation secondary to IVCD Compared to ECG 11/17/2023 15:20:08 Left bundle-branch block now present Intraventricular conduction delay now present ST (T wave) deviation now present Sinus tachycardia no longer present Early repolarization no longer present Electronically Signed On 03-12-2025 21:43:17 CDT by Zachery Amaya Please click the below link to view image of tracing.
[2025-03-12 11:01] LABS: BASOPHILS # (AUTO) 0.08 K/uL (0.00-0.20); BASOPHILS % (AUTO) 0.6 % (0.0-5.0); EOSINOPHILS # (AUTO) 1.52 K/uL (0.00-0.70); EOSINOPHILS % (AUTO) 11.9 % (0.0-8.0); HEMATOCRIT 40.7 % (42-54); IMMATURE GRANULOCYTE ABSOLUTE 0.03 K/uL (0-1); LYMPHOCYTES # (AUTO) 1.8 K/uL (1.0-4.8); LYMPHOCYTES % (AUTO) 14.4 % (21.0-51.0); MEAN CORPUSCULAR HEMOGLOBIN 29.5 pg (27.0-33.0); MEAN CORPUSCULAR HGB CONC 33.2 g/dL (32.0-36.0); MEAN CORPUSCULAR VOLUME 89.1 fL (79-99); MONOCYTES # (AUTO) 0.6 K/uL (0.1-1.0); MONOCYTES % (AUTO) 4.5 % (3.0-13.0); NEUTROPHILS # (AUTO) 8.7 K/uL (1.8-7.7); NEUTROPHILS % (AUTO) 68.4 % (40.0-77.0); PLATELET COUNT (AUTO) 357 K/uL (130-400); RED BLOOD CELL COUNT(AUTO) 4.57 MIL/uL (4.50-6.20); RED CELL DISTRIBUTION WIDTH 12.5 % (11.0-15.5); WHITE BLOOD COUNT (AUTO) 12.7 K/uL (4.8-10.8)
[2025-03-12 11:48] LABS: CREATININE 0.6 mg/dL (0.5-1.3); POTASSIUM 3.8 mmol/L (3.5-5.1)
--- NOTE | 2025-03-12 13:21 | ERN ---
General Chief Complaint: Shortness of Breath Stated Complaint: SOB, DIZZINESS Time Seen by MD: 10:51 History of Present Illness Initial Comments 59-year-old male came in for an episode of shortness for breath which resolved spontaneously after few minutes. Currently patient has been shortness for breath chest pain headache changes in his vision nausea vomiting diarrhea constipation. Patient is able to ambulate without any concerns. Allergies: Coded Allergies: No Allergy Information Available (Verified Allergy, Unknown, 06/01/19) No Known Allergies (Unverified Allergy, Unknown, 09/16/19) Home Meds Active Scripts Montelukast Sodium (Montelukast Sodium) 10 Mg Tablet, 10 MG PO HS for 30 Days, #30 TAB Prov:KSENIA LESLIE NP 11/21/23 Methylprednisolone (Medrol) 4 Mg Tab.ds.pk, 4 MG PO DAILY for 6 Days, #21 MG Prov:KSENIA LESLIE NP 11/21/23 Azithromycin (Azithromycin) 500 Mg Tablet, 500 MG PO DAILY for 5 Days, #5 TAB Prov:KSENIA LESLIE NP 11/21/23 Ipratropium/Albuterol Sulfate (Iprat-Albut 0.5-3(2.5) mg/3 ml) 3 Ml Ampul.neb, 3 ML IH Q9LKGTR for 16 Days, #60 AMP Prov:JAMIE RSOS Jr., MD 09/28/19 Reported Medications Fluticasone/Umeclidin/Vilanter (Trelegy Ellipta 100-62.5-25) 100-62.5 Blst.w.dev, 1 EACH IH AM 11/18/23 Past Medical History Past Medical History: Asthma Past Surgical History: None ROS Dictation CONSTITUTIONAL: Negative except for HPI HEAD/FACE: Negative except for HPI EENT: Negative except for HPI RESPIRATORY: Negative except for HPI GASTROINTESTINAL/ABDOMINAL: Negative except for HPI GENITOURINARY: Negative except for HPI MUSCULOSKELETAL: Negative except for HPI INTEGUMENTARY: Negative except for HPI NEUROLOGICAL/PSYCH: Negative except for HPI HEMATOLOGIC/LYMPHATIC: Negative except for HPI All Systems Negative, Except as noted above. 13 point review of systems assessed and all negative except for above. Physical Exam Physical Exam Dictation Vital Signs reviewed General Appearance: Alert, oriented x 3, no acute distress, well developed, nourished. Head and Face: non-traumatic. Eyes: PERRL, pink conjunctivas, eyelid no trauma, anterior chamber with arcus senilis. Ears: Pinnas intact and no signs of trauma or erythema ear canals clear and no discharge TM no erythema Nose: No discharge, no bleeding. Oropharynx: Mouth normal, tongue pink, pharynx clear,no erythema, tonsils no exudates, no abscesses noted, mucous membrane moist Neck: Supple, non-tender, no thyromegaly, no masses, no JVD, no bruits Breast:Deferred Chest:No tenderness, no crepitus, no paradoxical movement, no retractions Lungs:Clear, well-ventilated, symmetric, no rales, no wheezing, no rhonchi, no stridor, good breath sounds bilaterally Heart: Regular rate, regular rhythm, no murmur, no gallops Vascular: no peripheral edema, Abdomen: Soft, positive bowel sounds, nondistended, no guarding, nontender, no rebound, no masses no hepatomegaly, no splenomegaly, no Hodgson's sign, no hernias. Rectal: Deferred Genital: Deferred Neurological: Normal speech, motor function intact, sensory function intact Musculoskeletal: Neck nontender, full range of motion, back nontender, full range of motion, Extremities: nontender, full range of motion Skin: Color pink, dry, no turgor, no rash, no lacerations, no abrasions, no contusions. Lymphatic: Deferred Results Laboratory and Microbiology Lab and Micro Result Laboratory Tests Test 03/12/25 10:54 White Blood Count 12.7 K/uL (4.8-10.8) H Red Blood Count 4.57 MIL/uL (4.50-6.20) Hemoglobin 13.5 g/dL (14.0-18.0) L Hematocrit 40.7 % (42-54) L Mean Corpuscular Volume 89.1 fL (79-99) Mean Corpuscular Hemoglobin 29.5 pg (27.0-33.0) Mean Corpuscular Hemoglobin Concent 33.2 g/dL (32.0-36.0) Red Cell Distribution Width 12.5 % (11.0-15.5) Platelet Count 357 K/uL (130-400) Mean Platelet Volume 9.6 fL (7.5-10.5) Immature Granulocyte % (Auto) 0.2 % (0-1) Neutrophils (%) (Auto) 68.4 % (40.0-77.0) Lymphocytes (%) (Auto) 14.4 % (21.0-51.0) L Monocytes (%) (Auto) 4.5 % (3.0-13.0) Eosinophils (%) (Auto) 11.9 % (0.0-8.0) H Basophils (%) (Auto) 0.6 % (0.0-5.0) Neutrophils # (Auto) 8.7 K/uL (1.8-7.7) H Lymphocytes # (Auto) 1.8 K/uL (1.0-4.8) Monocytes # (Auto) 0.6 K/uL (0.1-1.0) Eosinophils # (Auto) 1.52 K/uL (0.00-0.70) H Basophils # (Auto) 0.08 K/uL (0.00-0.20) Absolute Immature Granulocyte (auto 0.03 K/uL (0-1) Nucleated Red Blood Cells 0.0 % (0.0-0.19) Sodium Level 143 mmol/L (136-145) Potassium Level 3.8 mmol/L (3.5-5.1) Chloride Level 104 mmol/L (101-111) Carbon Dioxide Level 31 mmol/L (21-32) Blood Urea Nitrogen 15 mg/dL (7-18) Creatinine 0.6 mg/dL (0.5-1.3) Glomerular Filtration Rate Calc 110 mL/min (>90) Random Glucose 118 mg/dL (70-105) H Total Calcium 9.4 mg/dL (8.5-10.1) Troponin I High Sensitivity 22 ng/L (4-75) MDM MDM: Differential diagnosis: There are no social concerns with this patient. Prescription drug management Prescriptions will include: Medical management and examination interpretation discussions were had by me with other qualified healthcare professionals as indicated for the patient's care. ED Course Orders Procedure Category Date Status Time 12 Lead Ekg Tracing- EKG 03/12/25 Complete Technical 10:51 Chest 1vw RAD 03/12/25 Taken 10:51 Cbc With Differential LAB 03/12/25 Complete 10:51 Basic Metabolic Panel LAB 03/12/25 Complete 10:51 Troponin I High LAB 6/30/25 Complete Sensitivity 11:07 Covid Rna Naat LAB 03/12/25 Logged 11:07 Influenza Type A & B, LAB 03/12/25 Logged Rapid 11:07 Vital Signs Date Time Temp Pulse Resp B/P (MAP) Pulse Ox O2 Delivery O2 Flow Rate FiO2 03/12/25 10:39 97.9 99 16 152/83 96 Room Air 0 DX & DISP Disposition: Discharge Departure Impression: Primary Impression: Dyspnea Condition: Stable Referrals: VERONICA MENENDEZ MD (PCP) KEVYN EVANS MD Mar 12, 2025 13:21
[2025-03-12 14:03] LABS: SARS-CoV-2, RNA, NAAT NEGATIVE SARS CoV-2 (NEGATIVE)
[2025-03-12 14:14] LABS: INFLUENZA TYPE A Negative For Type A (NEGATIVE); INFLUENZA TYPE B Negative For Type B (NEGATIVE)
--- NOTE | 2025-03-12 14:19 | HMCIMG ---
EXAM: CR Chest, 2 View. CLINICAL HISTORY: SOB COMPARISON: None provided. FINDINGS: Bibasilar airspace disease may reflect pneumonia. No pleural effusion or pneumothorax. Heart size and pulmonary vessels are within normal limits. IMPRESSION: 1. Bibasilar airspace disease, may represent pneumonia. /[place]
[2025-03-12 14:21] VITALS: BP 140/72; PULSE 78; RESP 16; TEMP 97.8; O2SAT 97
--- NOTE | 2025-03-12 14:32 | NUR ---
DC PATIENT WAS DC'D BY DR EVANS, I EXPLAINED TO PATIENT TO FOLLOW UP WITH PCP AND PROVIDED INFO BASED ON DIAGNOSIS, I ALSO ANSWERED ANY FURTHER THE QUESTIONS HAD, PATIENT AMBULATED OUT OF ED, NO COMPLICATIONS
== END 2025-03-12 14:23 | disposition home or self-care (01) ==
LOC: EDH 10:38
DX: R06.00 Dyspnea, unspecified (principal); J45.909 Unspecified asthma, uncomplicated; Z79.899 Other long term (current) drug therapy; Z79.52 Long term (current) use of systemic steroids; Z20.822 Contact with and (suspected) exposure to COVID-19
CPT/HCPCS: 36415; 71045; 80048; 84484; 85025; 87635; 87804; 93005; 99284